=== PATIENT | female | born 1995 ===

== ENCOUNTER 2022-07-03 06:19 | Outpatient (CLI) | payer MEDICAID ==
[~2022-07-03] VITALS: Ht 152.4 cm; Wt 74.0 kg
== END 2022-07-03 15:57 ==
LOC: PREOP 06:19
PROVIDERS: ATTEND Obstetrics & Gynecology
DX: Z01.818 Encounter for other preprocedural examination (principal); O34.219 Maternal care for unspecified type scar from previous cesarean delivery

== ENCOUNTER 2022-07-08 13:01 | Inpatient (IN) | payer MEDICAID ==
[2022-07-08] VITALS (11 sets, daily range): BP systolic 90–123; BP diastolic 52–75
[~2022-07-08] VITALS: Ht 151 cm; Wt 74.4 kg
[2022-07-08] MEDS ORDERED: ceFAZolin INJECTION 2,000 MG in NS (IVPB) 50 ML IV ONE (13:30)
[2022-07-08] MEDS ORDERED: FAMOTIDINE 20MG/2ML IV (PEPCID) IV ONE (13:45)
[2022-07-08] MEDS ORDERED: LACTATED RINGERS 1,000 ML IV PRN (13:45)
[2022-07-08] MEDS ORDERED: CITRIC ACID/SOB CIT (BICITRA) 30 ML UDC PO ONE (13:45)
[2022-07-08] MEDS ORDERED: METOCLOPRAMIDE INJ 10 MG/2 ML (REGLAN) IV ONE (13:45)
[2022-07-08] MEDS ORDERED: METOCLOPRAMIDE INJ 10 MG/2 ML (REGLAN) ONE (14:31)
[2022-07-08] MEDS ORDERED: CITRIC ACID/SOB CIT (BICITRA) 30 ML UDC ONE (14:31)
[2022-07-08] MEDS ORDERED: ceFAZolin INJECTION 2,000 MG ONE (14:31)
[2022-07-08] MEDS ORDERED: FAMOTIDINE 20MG/2ML IV (PEPCID) ONE (14:32)
[2022-07-08] MEDS ORDERED: NS (IVPB) 50 ML ONE (14:32)
[2022-07-08 14:53] LABS: BASOPHILS # (AUTO) 0.1 10^3/uL (0.0-0.1); BASOPHILS % (AUTO) 0 % (0-10); EOSINOPHILS # (AUTO) 0.1 10^3/uL (0.0-0.3); EOSINOPHILS % (AUTO) 0 % (0-10); HEMATOCRIT 33 % (35-52); HEMOGLOBIN 10.7 g/dL (11.5-16.0); LYMPHOCYTES # (AUTO) 4.1 10^3/uL (1.0-4.0); LYMPHOCYTES % (AUTO) 20 % (12-44); MEAN CORPUSCULAR HEMOGLOBIN 28 pg (25-34); MEAN CORPUSCULAR HGB CONC 33 g/dL (32-36); MEAN CORPUSCULAR VOLUME 86 fL (80-99); MEAN PLATELET VOLUME 9.3 fL (9.0-12.2); MONOCYTES # (AUTO) 1.3 10^3/uL (0.0-1.0); MONOCYTES % (AUTO) 6 % (0-12); NEUTROPHILS # (AUTO) 14.9 10^3/uL (1.8-7.8); NEUTROPHILS % (AUTO) 72 % (42-75); PLATELET COUNT 287 10^3/uL (130-400); WHITE BLOOD COUNT 20.6 10^3/uL (4.3-11.0)
[2022-07-08] MEDS ORDERED: fentaNYL INJ 100 MCG/2 ML AMP ONE (15:13)
[2022-07-08] MEDS ORDERED: OXYTOCIN PRE-MIX DRIP 1,000 ML IV ONE (15:14)
[2022-07-08] MEDS ORDERED: ONDANSETRON 4 MG/2 ML (SDV) Z0FRAN ONE (15:14)
--- NOTE | 2022-07-08 15:25 | History & Physical-OB ---
OB - Chief Complaint & HPI Date/Time Date of Admission: Date of Admission: Jul 08, 2022 at 1:01 pm Date seen by a Provider: Jul 08, 2022 Time Seen by a Provider: 15:23 Chief Complaint/History OB-Reason for Admission/Chief: Section Hx : 3 Hx Para: 1 Expected Date of Delivery: Jul 20, 2022 Gestational Age in Weeks: 38 Gestational Age in Days: 2 Admission Nurse Assessment Rev: Yes Allergies and Home Medications Allergies Coded Allergies: No Known Drug Allergies (Unverified , 07/03/22) Patient Home Medication List Home Medication List Reviewed: Yes No Active Prescriptions or Reported Meds OB - History Hx of Present Care: Yes Ultrasounds: Normal mid trimester US Obstetrical Complications: Gestational Hypertension Medical Complications: None Patient Past Medical History n/a Immunizations Influenza Vaccine Up-to-Date: No; Not Current OB - Admission Exam Physical Exam HEENT: NCAT Heart: Rhythm Normal Lungs: Clear Abdomen: Gravid Extremities: Normal Reflexes: Normal Cervical Dilatation: None Effacement: 50% Station: -3 Membranes: Intact Heart Rate: 130's Accelerations: Accelerations Present Decelerations: No Decelerations Short Term Variability: Present Wet Press Tender Variability: Average (6-25) Contractions on Admission: 6-10 Minutes Apart Intensity: Mild Labs Laboratory Tests Test 07/08/22 14:30 Range/Units White Blood Count 20.6 H 4.3-11.0 10^3/uL Red Blood Count 3.84 3.80-5.11 10^6/uL Hemoglobin 10.7 L 11.5-16.0 g/dL Hematocrit 33 L 35-52 % Mean Corpuscular Volume 86 80-99 fL Mean Corpuscular Hemoglobin 28 25-34 pg Mean Corpuscular Hemoglobin Concent 33 32-36 g/dL Red Cell Distribution Width 13.5 10.0-14.5 % Platelet Count 287 130-400 10^3/uL Mean Platelet Volume 9.3 9.0-12.2 fL Immature Granulocyte % (Auto) 1 % Neutrophils (%) (Auto) 72 42-75 % Lymphocytes (%) (Auto) 20 12-44 % Monocytes (%) (Auto) 6 0-12 % Eosinophils (%) (Auto) 0 0-10 % Basophils (%) (Auto) 0 0-10 % Neutrophils # (Auto) 14.9 H 1.8-7.8 10^3/uL Lymphocytes # (Auto) 4.1 H 1.0-4.0 10^3/uL Monocytes # (Auto) 1.3 H 0.0-1.0 10^3/uL Eosinophils # (Auto) 0.1 0.0-0.3 10^3/uL Basophils # (Auto) 0.1 0.0-0.1 10^3/uL Immature Granulocyte # (Auto) 0.2 H 0.0-0.1 10^3/uL OB - Assessment/Plan/Diagnosis Assessment Assessment: section Admission Dx 27 yo @ 38 weeks Previous GBS pos Admission Status: Inpatient Order (span 2 midnights) Reason for Inpatient Admission: 27 yo @ 38 weeks Previous GBS pos Plan Plan: Section BARBIE RENDON DO Jul 08, 2022 3:25 pm
--- NOTE | 2022-07-08 15:28 | Discharge Inst-Women's Service ---
Discharge Inst-Women's Serv Depart Medication/Instructions New, Converted or Re-Newed RX: Transmitted to Pharmacy Final Diagnosis POD 2 RLTCS Problems Reviewed?: Yes Consults/Follow Up Additional Follow Up: Yes Orders/Referrals Dr. Goss in 7-10 days and in 6 weeks Activity Activity: Activity as Tolerated Driving Instructions: No Driving for 1 Week NO SMOKING: NO SMOKING Nothing Inside Vagina: No Douching, No [place], No Tampons Diet Discharge Diet: No Restrictions Symptoms to Report to : Bleeding Excessive, Pain Increased, Fever Over 101 Degrees F, Vaginal Bleeding Increase, Questions/Concerns For Any Problems or Questions: Contact Your Physician Skin/Wound Care Infection Signs and Symptoms: Increased Redness, Foul Odor of Wound, Increased Drainage, Skin Itchy or Has a Rash, Increased Swelling, Temperature Above 101 F Operative Area Clean and Dry: Keep Incision Clean/Dry Stitches/[place]/Dermabond: Dermabond, Care of Stitches Bathing Instructions: BARBIE Caba DO Jul 08, 2022 3:28 pm
[2022-07-08] MEDS ORDERED: ONDANSETRON 4 MG/2 ML (SDV) Z0FRAN IVP PRN (15:30)
[2022-07-08] MEDS ORDERED: MEASLES,MUMPS,RUBELLA 1 EA INJ SC SCH (15:30)
[2022-07-08] MEDS ORDERED: OXYTOCIN PRE-MIX DRIP 500 ML IV SCH (15:30)
[2022-07-08] MEDS ORDERED: TETANUS,DIPTH,PERTUSS P/F (BOOSTRIX) 0.5 ML VIAL IM SCH (15:30)
[2022-07-08] MEDS ORDERED: NALOXONE 0.4 MG/ML 1 ML (NARCAN) VIAL IV PRN ×3 (15:30→17:15)
[2022-07-08 15:34] LABS: LYMPHOCYTES % (MANUAL) 18 %; MONOCYTES % (MANUAL) 6 %; NEUTROPHILS % (MANUAL) 76 %; RBC MORPH NORMAL
[2022-07-08] MEDS ORDERED: PHENYLEPHRINE 100 MCG/ML 10 ML (ANESTHESIA) SYR ONE (16:32)
[2022-07-08] MEDS ORDERED: KETOROLAC 30 MG/ML VIAL ONE (16:32)
[2022-07-08] MEDS ORDERED: GLYCOPYRROLATE 0.2 MG/ML (ROBINUL) 2 ML VIAL ONE (16:32)
[2022-07-08] MEDS: KETOROLAC 30 MG/ML VIAL IV SCH (16:40)
[2022-07-08] MEDS ORDERED: BUPIVACAINE 0.25% 30 ML (SENSORCAINE) VIAL ONE (16:49)
[2022-07-08] MEDS ORDERED: morphine INJ 10 MG/ML 1ML (SYR OR VIAL) IVP ONE (17:15)
[2022-07-08] MEDS ORDERED: METOCLOPRAMIDE INJ 10 MG/2 ML (REGLAN) IV PRN (17:15)
[2022-07-08] MEDS ORDERED: diphenhydrAMINE 50 MG/ML INJ (BENADRYL) IV PRN (17:15)
[2022-07-08] MEDS ORDERED: ONDANSETRON 4 MG/2 ML (SDV) Z0FRAN IV PRN (17:15)
[2022-07-08] MEDS ORDERED: OXYTOCIN PRE-MIX DRIP 500 ML IV ONE (19:40)
[2022-07-08] MEDS: HYDROcodone/APAP 5 MG/325 MG (LORTAB) TAB PO PRN (21:48)
[2022-07-08] MEDS: DOCUSATE SODIUM 100 MG (COLACE) CAP PO SCH (21:48)
[2022-07-08] MEDS ORDERED: CATHETER FLUSH 10 ML SYR IV SCH (22:00)
[2022-07-09 00:20] VITALS: BP 105/69
[2022-07-09] MEDS: KETOROLAC 30 MG/ML VIAL IV SCH ×2 (00:21→06:24)
--- NOTE | 2022-07-09 02:35 | OPERATIVE REPORT ---
PREOPERATIVE DIAGNOSES: 1. A 27-year-old at 38 weeks and 5 days gestation. 2. History of IUGR. 3. Gestational hypertension. POSTOPERATIVE DIAGNOSES: 1. A 27-year-old at 38 weeks and 5 days gestation. 2. History of IUGR. 3. Gestational hypertension. PROCEDURE: Repeat low transverse section. SURGEON: Andrea Rendon DO WOODENWARE ASSEMBLER: Darleen Suggs DNP, was necessary for manipulation and retraction throughout the procedure. ANESTHESIA: Spinal. ESTIMATED BLOOD LOSS: 200 mL URINE OUTPUT: 50 mL clear at the end of procedure. FLUIDS: 1700 mL lactated Ringer's solution. FINDINGS: Live female , weight and Apgars were pending. Grossly normal appearing uterus, bilateral fallopian tubes and ovaries. SPECIMEN SENT: Placenta. INDICATIONS FOR PROCEDURE: This 27-year-old female with a patient who had transferred to care mid from [facility]. Her transfer of care involved discussion of ; however, the patient's cervix never became favorable throughout the . I discussed with the patient and proceed with repeat versus risks and she was agreeable to proceed with repeat . Risks of the procedure were discussed with the patient in detail. After all of her questions were answered and consent was obtained, the patient was taken to the operating room. DESCRIPTION OF PROCEDURE: Once in the operating room, spinal anesthesia was found to be adequate, was placed in the supine position with a leftward tilt, prepped and draped in normal sterile fashion. A timeout was performed. Anesthesia was tested and then make a Pfannenstiel skin incision through the previously existing scar using a knife and carried to underlying fascia using Bovie cautery. Fascial incision extended laterally using Bovie cautery. Superior aspect of the fascial incision was then grasped with Lake clamps, tented up and dissected off the rectus muscles. The inferior aspect of the fascial incision was then grasped with Lake clamps, tented up and dissected off the underlying rectus muscles. The rectus muscles were then dissected down to the midline using sharp dissection, we exposed the peritoneum, which I entered bluntly and extended using blunt traction. An Jhonathan ring retractor was placed in the peritoneal incision, which offered excellent lateral sidewall retraction identified. The lower uterine segment was found to be thinned out. I make a low transverse incision to the vesicouterine peritoneum and bluntly dissected off the lower uterine segment, creating a bladder flap. I then proceeded with my myotomy until membranes were visualized, at which point I extended the uterine incision laterally and superiorly using bandage scissors. Amniotomy was then performed using Allis clamp, clear fluid was noted. The infant was found in the vertex presentation with the head is delivered through the incision. The nares and oropharynx are bulb suctioned. Anterior and posterior shoulders were delivered and the was brought to the operative field where the cords were clamped and cut. was handed off to the waiting nurse in attendance. Cord blood was collected. Three-vessel cord with intact placenta was delivered spontaneously thereafter. IV Pitocin was initiated to facilitate uterine contraction. Uterine fundus was firm with bimanual massage. Uterus was then exteriorized and cleared of all endometrial clots and debris. I then proceeded with closing the uterine incision using 0 Vicryl suture in a running locked fashion. Second layer of imbricating Monocryl was placed. Excellent hemostasis was noted. After doing this, I then placed the uterus back in the pelvis and copiously irrigated the pelvis using normal saline. Once again, there was no active bleeding noted from any of my dissection planes. I placed Interceed antiadhesive over my low transverse incision. I removed the Jhonathan retractor and then proceeded with closing the peritoneum using 3-0 Vicryl suture in a running fashion. The rectus muscle was reapproximated using 3-0 Vicryl suture in interrupted fashion. The fascia was reapproximated using 0 Vicryl suture in a running fashion. The skin was then reapproximated using 4-0 Monocryl in a running subcuticular. Dermabond was applied to incision. A sterile dressing with adhesive white tape. The patient tolerated the procedure well and was taken to the recovery room in stable condition. Lap and sponge counts were correct at the end of the procedure. Instrument count was correct as well. Two grams of Ancef were given preoperatively for infection prophylaxis. Job ID: [id number] DocumentID: [id number] Dictated Date: 07/08/2022 16:36:35 Sales And Operations Trainee Date: 07/09/2022 02:33:00 Dictated By: ANDREA RENDON DO
[2022-07-09 03:30] VITALS: BP 107/67
[2022-07-09 05:58] LABS: BASOPHILS # (AUTO) 0.1 10^3/uL (0.0-0.1); BASOPHILS % (AUTO) 0 % (0-10); EOSINOPHILS # (AUTO) 0.1 10^3/uL (0.0-0.3); EOSINOPHILS % (AUTO) 1 % (0-10); HEMATOCRIT 28 % (35-52); HEMOGLOBIN 9.5 g/dL (11.5-16.0); LYMPHOCYTES # (AUTO) 2.7 10^3/uL (1.0-4.0); LYMPHOCYTES % (AUTO) 17 % (12-44); MEAN CORPUSCULAR HEMOGLOBIN 28 pg (25-34); MEAN CORPUSCULAR HGB CONC 34 g/dL (32-36); MEAN CORPUSCULAR VOLUME 84 fL (80-99); MEAN PLATELET VOLUME 8.8 fL (9.0-12.2); MONOCYTES % (AUTO) 6 % (0-12); NEUTROPHILS # (AUTO) 12.5 10^3/uL (1.8-7.8); NEUTROPHILS % (AUTO) 76 % (42-75); PLATELET COUNT 329 10^3/uL (130-400); WHITE BLOOD COUNT 16.4 10^3/uL (4.3-11.0)
--- NOTE | 2022-07-09 08:01 | Anesthesia-Regional Post-Op ---
Regional Patient Condition Mental Status: Alert, Oriented x3 Circulation: Same as Pre-Op Headache: Absent Sensation: Full Recovery Motor Block: Absent Post Op Complications Complications None Follow Up Care/Instructions Patient Instructions None needed. Anesthesia/Patient Condition Patient is doing well, no complaints, stable vital signs, no apparent adverse anesthesia problems. No complications reported per nursing. CA HUFF CRNA Jul 09, 2022 08:01
[2022-07-09] MEDS: DOCUSATE SODIUM 100 MG (COLACE) CAP PO SCH ×2 (08:06→21:08)
[2022-07-09 08:07] VITALS: BP 111/67
[2022-07-09] MEDS: HYDROcodone/APAP 5 MG/325 MG (LORTAB) TAB PO PRN ×3 (08:07→23:29)
--- NOTE | 2022-07-09 08:33 | Postpartum Progress Note ---
Note Note Day # 1 Subjective: Patient is without complaints. Ambulating, voiding. Tolerating a regular diet without nausea or vomiting. Normal lochia. Pain is well controlled with oral pain medications. Objective: Physical Exam: General - Alert and oriented, no apparent distress Abdomen - Soft, appropriately tender to palpation, non-distended, fundus firm at umbilicus Extremities - no edema, negative Raúl's bilaterally Incision- c/d/i Assessment: POD 1 RLTCS Acute blood loss anemia Plan: Routine care. Encourage breast feeding. Encourage ambulation. Ferrous sulfate supplementation. Plan for discharge tomorrow Vitals - Labs Vital Signs - I&O Vital Signs Date Time Temp Pulse Resp B/P (MAP) Pulse Ox O2 Delivery O2 Flow Rate FiO2 07/09/22 03:30 36.3 62 16 107/67 (80) 99 Room Air 07/09/22 00:20 36.4 72 16 105/69 (81) 99 Room Air 07/08/22 22:00 Room Air 07/08/22 21:40 36.7 61 16 110/69 (83) 97 Room Air 07/08/22 18:45 37.0 74 16 123/73 (90) 99 Room Air 07/08/22 17:50 37.2 87 16 117/75 (89) 100 Room Air 07/08/22 17:45 Room Air 07/08/22 17:45 36.3 20 109/55 (73) 98 Room Air 07/08/22 17:40 36.3 20 109/55 (73) 98 Room Air 07/08/22 17:30 20 110/60 (77) 98 Room Air 07/08/22 17:30 Room Air 07/08/22 17:20 36.3 20 106/68 (81) 100 Room Air 07/08/22 17:15 Room Air 07/08/22 17:10 20 90/52 (65) 99 Room Air 07/08/22 17:00 20 112/60 (77) 100 Room Air 07/08/22 17:00 Room Air 07/08/22 16:52 Room Air 07/08/22 16:52 36.3 20 110/69 (83) 100 Room Air 07/08/22 14:00 36.4 62 18 98 Room Air I & O 07/09/22 07:00 Intake Total 1100 ml Output Total 610 ml Balance 490 ml Labs Laboratory Tests 07/08/22 14:30: White Blood Count 20.6H, Red Blood Count 3.84, Hemoglobin 10.7L, Hematocrit 33L, Mean Corpuscular Volume 86, Mean Corpuscular Hemoglobin 28, Mean Corpuscular Hemoglobin Concent 33, Red Cell Distribution Width 13.5, Platelet Count 287, Mean Platelet Volume 9.3, Immature Granulocyte % (Auto) 1, Neutrophils (%) (Auto) 72, Lymphocytes (%) (Auto) 20, Monocytes (%) (Auto) 6, Eosinophils (%) (Auto) 0, Basophils (%) (Auto) 0, Neutrophils # (Auto) 14.9H, Lymphocytes # (Auto) 4.1H, Monocytes # (Auto) 1.3H, Eosinophils # (Auto) 0.1, Basophils # (Auto) 0.1, Immature Granulocyte # (Auto) 0.2H, Neutrophils % (Manual) 76, Lymphocytes % (Manual) 18, Monocytes % (Manual) 6, Blood Morphology Comment NORMAL 07/09/22 05:44: White Blood Count 16.4H, Red Blood Count 3.38L, Hemoglobin 9.5L, Hematocrit 28L, Mean Corpuscular Volume 84, Mean Corpuscular Hemoglobin 28, Mean Corpuscular Hemoglobin Concent 34, Red Cell Distribution Width 13.2, Platelet Count 329, Mean Platelet Volume 8.8L, Immature Granulocyte % (Auto) 0, Neutrophils (%) (Auto) 76H, Lymphocytes (%) (Auto) 17, Monocytes (%) (Auto) 6, Eosinophils (%) (Auto) 1, Basophils (%) (Auto) 0, Neutrophils # (Auto) 12.5H, Lymphocytes # (Auto) 2.7, Monocytes # (Auto) 1.0, Eosinophils # (Auto) 0.1, Basophils # (Auto) 0.1, Immature Granulocyte # (Auto) 0.1 BARBIE RENDON DO Jul 09, 2022 08:33
[2022-07-09] MEDS ORDERED: IBUP-844 PO (08:41)
[2022-07-09] MEDS ORDERED: ACHD5005 PO (08:41)
[2022-07-09] MEDS ORDERED: DOCU100C37 PO (08:41)
[2022-07-09] MEDS ORDERED: IBUPROFEN 600 MG (MOTRIN) TAB PO ONE (11:52)
[2022-07-09 11:54] VITALS: BP 118/73
[2022-07-09] MEDS: IBUPROFEN 600 MG (MOTRIN) TAB PO SCH ×3 (11:54→23:28)
[2022-07-09 16:10] VITALS: BP 113/81
[2022-07-09 21:00] VITALS: BP 110/59
[2022-07-10] MEDS: KETOROLAC 30 MG/ML VIAL IV SCH (03:11)
[2022-07-10 06:30] VITALS: BP 111/57
[2022-07-10] MEDS: IBUPROFEN 600 MG (MOTRIN) TAB PO SCH ×2 (06:30→11:36)
[2022-07-10] MEDS: HYDROcodone/APAP 5 MG/325 MG (LORTAB) TAB PO PRN (06:30)
--- NOTE | 2022-07-10 07:04 | Postpartum Progress Note ---
ZOE LEAL 07/10/22 0704: Note Note Day # 2 Subjective: Patient is without complaints. Ambulating, voiding. Tolerating a regular diet without nausea or vomiting. Normal lochia. Pain is well controlled with oral pain medications. Objective: Physical Exam: General - Alert and oriented, no apparent distress Abdomen - Soft, appropriately tender to palpation, non-distended, fundus firm at umbilicus Extremities - no edema, negative Raúl's bilaterally Assessment: POD 2 RLTCS Acute blood loss anemia Recovering well, hemodynamically stable Plan: Routine care. Encourage breast feeding. Encourage ambulation. Ferrous sulfate supplementation. Plan for discharge today. Vitals - Labs Vital Signs - I&O Vital Signs Date Time Temp Pulse Resp B/P (MAP) Pulse Ox O2 Delivery O2 Flow Rate FiO2 07/09/22 21:00 36.6 66 18 110/59 (76) 99 Room Air 07/09/22 16:10 36.3 63 18 113/81 (92) 100 Room Air 07/09/22 11:54 35.9 61 18 118/73 (88) 100 Room Air 07/09/22 08:07 36.4 58 18 111/67 (82) 100 Room Air I & O 07/10/22 07:00 Intake Total 860 ml Output Total 1900 ml Balance -1040 ml BARBIE RENDON DO 07/10/22 0728: Note Note Verification and Attestation of Medical Student E/M Service A medical student performed and documented this service in my presence. I review ed and verified all information documented by the medical student and made modifications to such information, when appropriate. I personally performed the physical exam and medical decision making. Barbie Rendon Jul 10, 2022,07:28 ZOE LEAL Jul 10, 2022 07:04 BARBIE RENDON DO Jul 10, 2022 07:28
[2022-07-10 07:57] VITALS: BP 121/68
[2022-07-10] MEDS: DOCUSATE SODIUM 100 MG (COLACE) CAP PO SCH (07:57)
[2022-07-10 13:35] VITALS: BP 121/68
== END 2022-07-10 13:35 | disposition home or self-care (01) | DRG 787 ==
LOC: LDRP 13:01
PROVIDERS: ADMIT Obstetrics & Gynecology; ATTEND Obstetrics & Gynecology
PROC: 10D00Z1 Extraction of Products of Conception, Low, Open Approach (ICD-10-PCS; principal; 2022-07-08 15:51)
DX: O34.211 Maternal care for low transverse scar from previous cesarean delivery (principal); D62 Acute posthemorrhagic anemia; Z3A.38 38 weeks gestation of pregnancy; Z37.0 Single live birth; O99.824 Streptococcus B carrier state complicating childbirth; O13.4 Gestational [pregnancy-induced] hypertension without significant proteinuria, complicating childbirth; O90.81 Anemia of the puerperium
CPT/HCPCS: 36415; 85007; 85025; 85027; 86850; 86900; 86901; 94664